=== PATIENT | male | born 1995 | race American Indian/Alaskan Native ===

== ENCOUNTER 2017-03-13 06:28 | Emergency (ER) | payer BC ==
[2017-03-13] MEDS ORDERED: Albuterol-Ipratrop 3 mg / 0.5 (3 ml) UD ONE ×3 (06:33→06:46)
[2017-03-13 07:11] VITALS: RESP 18
--- NOTE | 2017-03-13 07:18 | C.PDOC ---
History Of Present Illness Patient is a 21 y/o male, whose PMHx includes asthma, that presents to the ED for evaluation of increased shortness of breath since last night. Pt states that his last asthma exacerbation was 1 year ago. Denies ever being admitted to ICU in the past for similar complaints, or being intubated. Patient states he ran out of his medications "long time" ago. Otherwise, denies any other medical conditions, fever, chills, cough, chest pain, or any other associated symptoms at this time. Time Seen by Provider: 03/13/17 07:01 Chief Complaint (Nursing): Shortness Of Breath History Per: Patient History/Exam Limitations: no limitations Onset/Duration Of Symptoms: Days (1) Current Symptoms Are (Timing): Still Present Initiating Event: Out Of Medications Severity: None Pain Scale Rating Of: 0 Associated Symptoms: denies: Fever, Chills, Sweating, Chest Pain, Bloody Cough, Productive Cough, Heart Racing, Leg/Calf Pain, Ankle/Leg Swelling, Dizziness, Light-headedness, Anxiety, Tingling In Hands Or Face, Musle Spasms In Hands Or Feet Recent travel outside of the [place]: No Additional History Per: Patient Past Medical History Reviewed: Historical Data, Nursing Documentation, Vital Signs Vital Signs: Last Vital Signs Temp 98 F 03/13/17 06:42 Pulse 98 H 03/13/17 06:42 Resp 18 03/13/17 07:07 BP 152/61 H 03/13/17 06:42 Pulse Ox 97 03/13/17 07:52 - Medical History PMH: Asthma Family History: States: No Known Family Hx - Social History Hx Alcohol Use: Yes Hx Substance Use: Yes - Immunization History Hx Tetanus Toxoid Vaccination: No Hx Influenza Vaccination: No Hx Pneumococcal Vaccination: No Review Of Systems Except As Marked, All Systems Reviewed And Found Negative. Constitutional: Negative for: Fever, Chills Cardiovascular: Negative for: Chest Pain, Palpitations, Light Headedness Respiratory: Positive for: Shortness of Breath. Negative for: Cough, Sputum Gastrointestinal: Negative for: Nausea, Vomiting, Abdominal Pain Neurological: Negative for: Weakness, Numbness, Headache, Dizziness Physical Exam - Physical Exam Appears: Non-toxic, No Acute Distress Skin: Normal Color, Warm, Dry Head: Atraumatic, Normacephalic Eye(s): bilateral: Normal Inspection, EOMI Neck: Normal ROM, Supple Chest: Symmetrical, No Tenderness Cardiovascular: Rhythm Regular, No Murmur Respiratory: No Accessory Muscle Use, No Rales, No Rhonchi, Wheezing (mild expiratory wheezing) Gastrointestinal/Abdominal: Soft, No Tenderness Neurological/Psych: Oriented x3, Normal Speech, Normal Cognition ED Course And Treatment O2 Sat by Pulse Oximetry: 97 (on RA) Pulse Ox Interpretation: Normal Progress Note: Patient was treated with Albuterol and prednisone in the ER. Medical Decision Making Medical Decision Making: markedly improved post tx Wheezing resolved, ambulated with out SOB Plan dc home with meds Disposition - Disposition Referrals: [facility] [Outside] Disposition Time: 08:00 Condition: GOOD Prescriptions: Albuterol HFA [Ventolin HFA 90 mcg/actuation (8 g)] 1 puff IH QID PRN #1 puff PRN Reason: Cough Inhaler, Assist Devices [Space Chamber Plus] 1 each MC PRN #1 spacer Prednisone 1 tab PO DAILY #4 tablet Instructions: Asthma (ED) - Clinical Impression Clinical Impression: Asthma attack - Scribe Statement The provider has reviewed the documentation as recorded by the Scribe Sugar Conrad All medical record entries made by the Scribe were at my direction and personally dictated by me. I have reviewed the chart and agree that the record accurately reflects my personal performance of the history, physical exam, medical decision making, and the department course for this patient. I have also personally directed, reviewed, and agree with the discharge instructions and disposition.
[2017-03-13] MEDS: Albuterol-Ipratrop 3 mg / 0.5 (3 ml) UD IH SCH (07:41)
[2017-03-13 08:14] VITALS: BP 125/67; PULSE 95; TEMP 98.6; O2SAT 96
== END 2017-03-13 08:07 | disposition home or self-care (01) ==
LOC: C.ER 06:28
DX: J45.909 Unspecified asthma, uncomplicated (principal)